=== PATIENT | male | born 1955 | race Caucasian/White ===

== ENCOUNTER 2018-11-05 19:26 | Emergency (ER) | payer BC ==
[2018-11-05] MEDS ORDERED: Lactated Ringers 1,000 ML IV SCH ×2 (19:30→21:15)
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
[2018-11-05 20:31] LABS: CHLORIDE,CL 93 mmol/L (98-107); SODIUM,NA 132 mmol/L (136-145)
[2018-11-05 20:34] LABS: ANION GAP 14.3 mmol/L (10-20)
[2018-11-05] MEDS ORDERED: Sodium Chloride 0.9% 10 ML Syringe FLUSH PRN (21:05)
--- NOTE | 2018-11-06 08:26 | CT ---
[id number] CT/CT Head WO IV EXAM: CT Head WO IV CLINICAL DATA: LEG WEAKNESS. COLLAPSE. COMPARISON: NO PREVIOUS SIMILAR EXAM IS AVAILABLE FOR COMPARISON. FINDINGS: There is no mass or mass effect. There is no hemorrhage or hydrocephalus. There are no extra-axial fluid collections. There are no sites of abnormal attenuation. IMPRESSION: NO PLAIN CT EVIDENCE OF ACUTE INTRACRANIAL PROCESS. Aric Love MD 11/06/18 0825 Thank you for allowing us to participate in the care of your patient.
== END 2018-11-05 21:25 | disposition home or self-care (01) ==
LOC: VM.ED 19:26
DX: F10.129 Alcohol abuse with intoxication, unspecified (principal); Y90.8 Blood alcohol level of 240 mg/100 ml or more
CPT/HCPCS: 70450; 80053; 80305; 81001; 82550; 84484; 85025; 93005; 96360; 99285; G0480; J7120